=== PATIENT | male | born 1980 | race Caucasian/White ===

== ENCOUNTER 2020-02-29 23:02 | Emergency (ER) | payer MEDICAID ==
[2020-02-29 23:20] VITALS: BP 131/75; PULSE 79; O2SAT 98
[2020-02-29] MEDS ORDERED: MOTRIN 600 MG PO ONE (23:20)
[2020-02-29] MEDS ORDERED: MOTRIN 600 MG ONE (23:23)
--- NOTE | 2020-02-29 23:27 | ERPHSYRPT ---
- History of Present Illness Time Seen by Provider: 02/29/20 23:20 Source: patient Exam Limitations: no limitations Patient Subjective Stated Complaint: r earache Triage Nursing Assessment: pt to ED c/o R earache x 9 days. noted redness to ear cannal. pt states sinus drainage and cough x 9 days as well. denies SOB, fever, other flu like sx. rates 9/10 pain. states was going to wait and go to clinic in am but pain started to radiate down to R neck. has been taking cold meds and decongestants at home with no relief. ambulatory without assist, A&Ox3 , lung sounds clear, heart sounds clear. Physician History: Patient is a 39-year-old male presents to our ED for evaluation of right ear pain. Patient has been experiencing URI symptoms for approximately 9 days. Patient has been experiencing nasal congestion and rhinorrhea. Patient's right ear pain started today. Patient has not taken any oral pain medication. Pain described as an ache that is localized to the right ear. No radiation at this time. No trauma. No fevers. No nausea or vomiting. No dizziness. No change in hearing acuity. Patient does not have a primary care physician to follow-up with. Patient requesting antibiotics. Patient voices no other complaints at this time. Timing/Duration: gradual onset Severity: moderate ENT Location: ear (R) Modifying Factors: Improves With: nothing Associated Symptoms: ear pain (R), nasal congestion/drainage, No ear drainage, No headache, No swollen glands, No sore throat Allergies/Adverse Reactions: No Known Drug Allergies Allergy (Unverified 02/29/20 23:21) Hx Tetanus, Diphtheria Vaccination/Date Given: Yes Hx Influenza Vaccination/Date Given: No Immunizations Up to Date: No Travel Risk - International Travel Have you traveled outside of the country in past 3 weeks: No Have you or anyone close to you been diagnosed with or: No Do your reside in a community with a known COVID-19 case?: Yes If Yes where:: [place] - Coronavirus Screening Has patient experienced Coronavirus symptoms: Yes Symptoms experienced: respiratory symptoms (i.e.Cought,shortness of breath) Date of respiratory symptoms onset:: 02/29/20 - Review of Systems Constitutional: No Symptoms, No Fever, No Chills Eyes: No Symptoms Ears, Nose, & Throat: No Symptoms, Ear Pain, No Ear Discharge, No Hearing Changes, No Tinnitus, No Epistaxis, No Mouth Swelling Respiratory: No Symptoms, No Cough, No Dyspnea Cardiac: No Symptoms, No Chest Pain, No Edema, No Syncope Abdominal/Gastrointestinal: No Symptoms, No Abdominal Pain, No Nausea, No Vomiting, No Diarrhea Genitourinary Symptoms: No Symptoms, No Dysuria Musculoskeletal: No Symptoms, No Back Pain, No Neck Pain Skin: No Symptoms, No Rash Neurological: No Dizziness, No Focal Weakness, No Sensory Changes Psychological: No Symptoms Endocrine: No Symptoms Hematologic/Lymphatic: No Symptoms Immunological/Allergic: No Symptoms All Other Systems: Reviewed and Negative - Past Medical History Pertinent Past Medical History: Yes Neurological History: No Pertinent History ENT History: No Pertinent History Cardiac History: No Pertinent History Respiratory History: Asthma Endocrine Medical History: No Pertinent History Musculoskeletal History: No Pertinent History GI Medical History: No Pertinent History History: No Pertinent History Psycho-Social History: Depression Male Reproductive Disorders: No Pertinent History - Past Surgical History Past Surgical History: Yes Neuro Surgical History: No Pertinent History Cardiac: No Pertinent History Respiratory: No Pertinent History Gastrointestinal: No Pertinent History Genitourinary: No Pertinent History Musculoskeletal: Other Male Surgical History: No Pertinent History Other Surgical History: R elbow procedure has screws placed - Social History Smoking Status: Current every day smoker How long have you smoked: 20 Exposure to second hand smoke: Yes Drug Use: none Patient Lives Alone: No - Nursing Vital Signs Nursing Vital Signs: Initial Vital Signs Pulse Rate 79 02/29/20 23:09 Respiratory Rate 18 02/29/20 23:09 Blood Pressure 131/75 02/29/20 23:09 O2 Sat by Pulse Oximetry 98 02/29/20 23:09 Pain Scale Pain Intensity 9 - Physical Exam General Appearance: no apparent distress, alert Eye Exam: bilateral eye: PERRL, EOMI Ear Exam: right ear: TM normal (Right TM is injected and bulging.), discharge, TM red, TM bulging Nasal Exam: normal inspection, discharge, No sinus tenderness Throat Exam: pharynx normal, moist mucus membranes, No tonsillar exudate Neck Exam: supple Cardiovascular/Respiratory Exam: normal breath sounds, regular rate/rhythm Abdominal Exam: non-tender, soft Neurologic Exam: alert, oriented x 3, sensation nml, No motor deficits Skin Exam: normal color, warm, dry SpO2 Interpretation: normal SpO2: 98 O2 Delivery: Room Air - Course Nursing assessment & vital signs reviewed: Yes Ordered Tests: Active Orders 24 hr Category Date Time Status Isolation, Initiate & Maintain Q12H Care 02/29/20 23:20 Active Medication Summary Discontinued Medications Generic Name Dose Route Start Last Admin Trade Name Edward PRN Reason Stop Dose Admin Ibuprofen 600 mg 02/29/20 23:20 02/29/20 23:23 Motrin 600 Mg PO 02/29/20 23:21 600 mg STAT ONE Administration Ibuprofen Confirm 02/29/20 23:23 Motrin 600 Mg Administered 02/29/20 23:24 Dose 600 mg .ROUTE .[facility]-MED ONE - Progress Progress Note: 02/29/20 23:38 Patient given ibuprofen for pain control. Patient feels better. Augmentin prescription transmitted to his pharmacy. Counseled pt/family regarding: diagnosis, need for follow-up - Departure Departure Disposition: Home Clinical Impression: Otitis media, URI (upper respiratory infection) Condition: Stable Critical Care Time: No Referrals: SOLO MORLEY DO [ACTIVE STAFF] - Instructions: Serous Otitis Media (DC) Additional Instructions: Discharge/Care Plan JJ SAMANO was seen on 02/29/20 in the Emergency Room. The patient was counseled regarding Diagnosis,Lab results, Imaging studies, need for follow up and when to return to the Emergency Room. Prescriptions given: Discharge Note I have spoken with the patient and/or caregivers. I have explained the patient' s condition, diagnosis and treatment plan based on the information available to me at this time. I have answered the patient's and/or caregiver's questions and addressed any concerns. The patient and/or caregivers have as good understanding of the patient's diagnosis, condition and treatment plan as can be expected at this point. The vital signs have been stable. The patient's condition is stable and appropriate for discharge from the emergency department. The patient will pursue further outpatient evaluation with the primary care physician or other designated or consulting physician as outlined in the discharge instructions. The patient and/or caregivers are agreeable to this plan of care and follow-up instructions have been explained in detail. The patient and/or caregivers have received these instruction. The patient/and or caregivers are aware that any significant change in condition or worsening of symptoms should prompt an immediate return to this or the closest emergency department or call 911. Prescriptions: Amox Tr/Potass Clav. 875 mg [Augmentin 875-125 Tablet] 1 each PO BID 7 Days #14 tablet
== END 2020-02-29 23:36 | disposition home or self-care (01) ==
LOC: ED 23:02
DX: H66.91 Otitis media, unspecified, right ear (principal); J06.9 Acute upper respiratory infection, unspecified
CPT/HCPCS: 99283; A9270-GY

== ENCOUNTER 2021-11-01 17:05 | Emergency (ER) | payer BC, MEDICAID ==
[2021-11-01 17:26] VITALS: O2SAT 98
[2021-11-01 18:09] VITALS: BP 122/80; PULSE 96
[2021-11-01] MEDS ORDERED: TORAdol 30 mg Injection IV ONE (18:18)
[2021-11-01] MEDS ORDERED: TORAdol 30 mg Injection ONE (18:19)
--- NOTE | 2021-11-01 18:23 | ERPHSYRPT ---
- History of Present Illness Time Seen by Provider: 11/01/21 17:30 Source: patient Exam Limitations: no limitations Patient Subjective Stated Complaint: Pt has a bite appearing rash to his upper left thigh area Triage Nursing Assessment: Pt brought self to the ER, hypertensive, denies pain without movement but has pain with movement, bite appearing rash to upper left thigh which was first noticed today, denies any other issues Physician History: Patient is a 41-year-old male presents to our emergency department with pain at the left groin area. Patient observed the pain today while working. Pain described as an ache that is localized. No radiation. No associated trauma. No associated penile lesions. No hematuria or dysuria. No fever. Symptoms are mild to moderate in intensity. Palpation reproduces pain. Pain improves with rest. Patient denies history of the same. No history of PE DVT. Patient otherwise healthy. He voices no other complaints or concerns at this time. 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[employer] - Review of Systems Constitutional: No Symptoms, No Fever, No Chills Eyes: No Symptoms Ears, Nose, & Throat: No Symptoms Respiratory: No Symptoms, No Cough, No Dyspnea Cardiac: No Symptoms, No Chest Pain, No Edema, No Syncope Abdominal/Gastrointestinal: No Symptoms, No Abdominal Pain, No Nausea, No Vomiting, No Diarrhea Genitourinary Symptoms: No Symptoms, No Dysuria Musculoskeletal: No Symptoms, No Back Pain, No Neck Pain Skin: No Symptoms, No Rash Neurological: No Symptoms, No Dizziness, No Focal Weakness, No Sensory Changes Psychological: No Symptoms Endocrine: No Symptoms Hematologic/Lymphatic: No Symptoms Immunological/Allergic: No Symptoms All Other Systems: Reviewed and Negative - Past Medical History Pertinent Past Medical History: Yes Neurological History: No Pertinent History ENT History: No Pertinent History Cardiac History: No Pertinent History Respiratory History: Asthma Endocrine Medical History: No Pertinent History Musculoskeletal History: No Pertinent History GI Medical History: No Pertinent History History: No Pertinent History Psycho-Social History: Depression Male Reproductive Disorders: No Pertinent History - Past Surgical History Past Surgical History: Yes Neuro Surgical History: No Pertinent History Cardiac: No Pertinent History Respiratory: No Pertinent History Gastrointestinal: No Pertinent History Genitourinary: No Pertinent History Musculoskeletal: Other Male Surgical History: No Pertinent History Other Surgical History: R elbow procedure has screws placed - Social History Smoking Status: Current every day smoker How long have you smoked: 20 Exposure to second hand smoke: Yes Drug Use: none Patient Lives Alone: No - Nursing Vital Signs Nursing Vital Signs: Initial Vital Signs Temperature 98.3 F 11/01/21 17:12 Pulse Rate 99 H 11/01/21 17:12 Blood Pressure 151/92 11/01/21 17:12 O2 Sat by Pulse Oximetry 98 11/01/21 17:12 Pain Scale Pain Intensity 8 - Physical Exam General Appearance: no apparent distress, alert Eye Exam: PERRL/EOMI, eyes nml inspection Ears, Nose, Throat Exam: normal ENT inspection, TMs normal, pharynx normal, moist mucous membranes Neck Exam: normal inspection, non-tender, supple, full range of motion Respiratory Exam: normal breath sounds, lungs clear, airway intact, No chest tenderness, No respiratory distress Cardiovascular Exam: regular rate/rhythm, normal heart sounds, normal peripheral pulses Gastrointestinal/Abdomen Exam: soft, normal bowel sounds, No tenderness, No mass Male Genitalia Exam: normal genitalia, No testicular tenderness, No testicular mass Back Exam: normal inspection, normal range of motion, No CVA tenderness, No vertebral tenderness Extremity Exam: normal inspection, normal range of motion, pelvis stable Neurologic Exam: alert, oriented x 3, cooperative, normal mood/affect, nml cerebellar function, nml station & gait, sensation nml, No motor deficits Skin Exam: normal color, warm, dry, No rash Lymphatic Exam: No adenopathy SpO2 Interpretation: normal SpO2: 98 O2 Delivery: Room Air - Course Nursing assessment & vital signs reviewed: Yes - Radiology Ultrasound Exam Venous Lower Extremity Ultrasound: discussed w/radiologist (Per chief orthoptist no DVT. However there is reactive lymphadenopathy at the area of involvement. ) Ordered Tests: Active Orders 24 hr Category Date Time Status IV Insertion STAT Care 11/01/21 18:20 Active VENOUS UNILAT/LIMITED EXTREMIT [US] Stat Exams 11/01/21 17:36 Ordered Medication Summary Discontinued Medications Generic Name Dose Route Start Last Admin Trade Name Edward PRN Reason Stop Dose Admin Ketorolac Tromethamine 30 mg 11/01/21 18:18 11/01/21 18:20 Ketorolac Tromethamine 30 Mg/Ml Inj IV 11/01/21 18:19 30 mg STAT ONE Administration Ketorolac Tromethamine Confirm 11/01/21 18:19 Ketorolac Tromethamine 30 Mg/Ml Inj Administered 11/01/21 18:20 Dose 30 mg .ROUTE .STK-MED ONE - Progress Progress: improved Progress Note: Patient reassessed. Pain resolved. Evaluation shows tenderness at the left groin region. Possible DVT versus reactive lymphadenopathy. Ultrasound reveals reactive lymphadenopathy. No DVT. Extremities are neurovascular intact distally. No indication for further work-up at this time. There is no obvious source of infection that would cause this reactive lymphadenopathy. However we will treat patient empirically for soft tissue infection. Patient received a dose of Bactrim in our ED. A prescription for the same was forwarded to patient's pharmacy. Patient agrees to follow-up with his primary care doctor within 48 hours for reevaluation. Patient voices no other complaints or concerns at this time. Portions of this note were created with voice recognition technology. There may be grammatical, spelling, punctuation or sound alike errors 11/01/21 19:10 Counseled pt/family regarding: diagnosis, need for follow-up, rad results - Departure Departure Disposition: Home Clinical Impression: Inguinal lymphadenopathy Condition: Stable Critical Care Time: No Referrals: DOCTOR,NO FAMILY [Primary Care Provider] - Follow up/PCP as directed JARROD MORALEZ MD [ACTIVE STAFF] - Follow up/PCP as directed Additional Instructions: Discharge/Care Plan JJ SAMANO was seen on 11/01/21 in the Emergency Room. The patient was counseled regarding Diagnosis,Lab results, Imaging studies, need for follow up and when to return to the Emergency Room. Prescriptions given: Discharge Note I have spoken with the patient and/or caregivers. I have explained the patient's condition, diagnosis and treatment plan based on the information available to me at this time. I have answered the patient's and/or caregiver's questions and addressed any concerns. The patient and/or caregivers have as good understanding of the patient's diagnosis, condition and treatment plan as can be expected at this point. The vital signs have been stable. The patient's condition is stable and appropriate for discharge from the emergency department. The patient will pursue further outpatient evaluation with the primary care physician or other designated or consulting physician as outlined in the discharge instructions. The patient and/or caregivers are agreeable to this plan of care and follow-up instructions have been explained in detail. The patient and/or caregivers have received these instruction. The patient/and or caregivers are aware that any significant change in condition or worsening of symptoms should prompt an immediate return to this or the closest emergency department or call 911. Prescriptions: Smz/Tmp Ds Tablet [Bactrim Ds Tablet] 1 udtab PO BID 7 Days #14 tablet
[2021-11-01] MEDS ORDERED: BACTRIM DS TABLET PO STA (19:03)
[2021-11-01] MEDS ORDERED: BACTRIM DS TABLET PO ONE (19:10)
--- NOTE | 2021-11-02 08:40 | XRAY ---
Indication: Pain. Two-dimensional sonogram and color Doppler imaging of the major venous vessels of the left leg performed. Comparison: None No thrombus seen in the examined deep venous vessels of the left leg including greater saphenous vein. Veins demonstrate normal compressibility. Venous waveforms are normal with and without augmentation. Groin demonstrates a few small benign-appearing lymph nodes, largest 1.6 x 0.7 cm. Impression: Left leg negative for DVT. Comment: Preliminary report was given.
== END 2021-11-01 19:20 | disposition home or self-care (01) ==
LOC: ED 17:05
DX: R59.0 Localized enlarged lymph nodes (principal); Z72.0 Tobacco use
CPT/HCPCS: 36000; 93971; 96374; 99284; J1885; A9270-GY

== ENCOUNTER 2022-06-18 13:54 | Emergency (ER) | payer BC ==
--- NOTE | 2022-06-18 14:00 | ERPHSYRPT ---
- History of Present Illness Time Seen by Provider: 06/18/22 14:00 Source: patient Exam Limitations: no limitations Physician History: This is a 41-year-old white male who has had chronic intermittent left lower quadrant and left groin pain. In October 2021 he was seen here and had left inguinal adenopathy. He was treated with Bactrim DS. Patient stated that that medication did help him however intermittently, since that time, the pain recurs. Patient has not noticed any swelling or redness in the area. He has had no penile discharge. Severity: mild (To moderate on occasion) Modifying Factors: Improves With: movement Associated Symptoms: denies symptoms Allergies/Adverse Reactions: No Known Drug Allergies Allergy (Verified 11/01/21 17:22) Home Medications: Omeprazole 20 mg PO DAILY 06/18/22 [History] Hx Tetanus, Diphtheria Vaccination/Date Given: Yes Hx Influenza Vaccination/Date Given: No Travel Risk - International Travel Have you traveled outside of the country in past 3 weeks: No - Coronavirus Screening Are you exhibiting any of the following symptoms?: No Close contact with a COVID-19 positive Pt in past 14-21 Days: No - Vaccine Status Have you recieved a Covid-19 vaccination: Yes 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[employer] - Review of Systems Constitutional: No Symptoms Eyes: No Symptoms Ears, Nose, & Throat: No Symptoms Respiratory: No Symptoms Cardiac: No Symptoms Abdominal/Gastrointestinal: Abdominal Pain (Left lower quadrant) Genitourinary Symptoms: Other (Left inguinal pain), No Penile Discharge Skin: No Symptoms Neurological: No Symptoms Psychological: No Symptoms Endocrine: No Symptoms Hematologic/Lymphatic: No Symptoms Immunological/Allergic: No Symptoms All Other Systems: Reviewed and Negative - Past Medical History Pertinent Past Medical History: Yes Neurological History: No Pertinent History ENT History: No Pertinent History Cardiac History: No Pertinent History Respiratory History: Asthma Endocrine Medical History: No Pertinent History Musculoskeletal History: No Pertinent History GI Medical History: No Pertinent History History: No Pertinent History Psycho-Social History: Depression Male Reproductive Disorders: No Pertinent History - Past Surgical History Past Surgical History: Yes Neuro Surgical History: No Pertinent History Cardiac: No Pertinent History Respiratory: No Pertinent History Gastrointestinal: No Pertinent History Genitourinary: No Pertinent History Musculoskeletal: Other Male Surgical History: No Pertinent History Other Surgical History: R elbow procedure has screws placed - Social History Smoking Status: Current every day smoker How long have you smoked: 20 Exposure to second hand smoke: Yes Drug Use: none Patient Lives Alone: No - Nursing Vital Signs Nursing Vital Signs: Initial Vital Signs Temperature 98.1 F 06/18/22 13:59 Pulse Rate 83 06/18/22 13:59 Respiratory Rate 22 06/18/22 13:59 Blood Pressure 150/94 06/18/22 13:59 O2 Sat by Pulse Oximetry 97 06/18/22 13:59 Pain Scale Pain Intensity 0 - Physical Exam General Appearance: no apparent distress, alert, anxiety Eye Exam: PERRL/EOMI, eyes nml inspection Ears, Nose, Throat Exam: normal ENT inspection, moist mucous membranes Neck Exam: normal inspection, non-tender, supple, full range of motion Respiratory Exam: airway intact, No chest tenderness, No respiratory distress Gastrointestinal/Abdomen Exam: tenderness (Mild left lower quadrant and left inguinal) Male Genitalia Exam: No hernia Rectal Exam: not done Back Exam: normal inspection, normal range of motion, No CVA tenderness, No vertebral tenderness Extremity Exam: normal inspection, normal range of motion, pelvis stable Neurologic Exam: alert, oriented x 3, cooperative, 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 There is colonic diverticulosis without diverticulitis. The osseous structures are intact. Counseled pt/family regarding: diagnosis, need for follow-up, rad results - Departure Departure Disposition: Home Clinical Impression: Left inguinal pain Condition: Stable Critical Care Time: No Referrals: DOCTOR,NO FAMILY [Primary Care Provider] - Follow up/PCP as directed Additional Instructions: Ice pack to area 3 times a day for the next 48 hours. Take your prior medications as prescribed. Follow-up with your prescribing provider for further evaluation and management including referral to a urologist if indicated.
--- NOTE | 2022-06-18 14:37 | XRAY ---
Indication: Right upper quadrant and left groin pain. Multiple contiguous axial images obtained through the abdomen and pelvis without contrast. Comparison: None Lung bases degraded by respiration artifact. No infiltrate or effusion. Heart not enlarged. Noncontrasted stomach and bowel loops appear nonobstructed with normal appendix. Minimal scattered descending and sigmoid diverticulosis without diverticulitis. No free fluid/air. Remaining liver, gallbladder, pancreas, spleen, adrenal glands, kidneys, ureters, bladder, and aorta are unremarkable for noncontrast exam. Osseous structures intact. No ventral or inguinal hernias. Impression: Minimal colonic diverticulosis. Remaining CT abdomen/pelvis without contrast exam is negative.
[2022-06-18 15:12] VITALS: BP 126/80; PULSE 69; O2SAT 98
== END 2022-06-18 15:23 | disposition home or self-care (01) ==
LOC: ED 13:54
DX: R10.2 Pelvic and perineal pain (principal); R10.32 Left lower quadrant pain; Z72.0 Tobacco use
CPT/HCPCS: 74176; 99282

== ENCOUNTER 2023-04-24 19:43 | Emergency (ER) | payer BC ==
[2023-04-24 20:18] VITALS: O2SAT 95
[2023-04-24] MEDS ORDERED: TETRACAINE 0.5% STERI-UNIT SOL OP ONE (20:41)
[2023-04-24] MEDS ORDERED: Fluor-I-Strip/Ful-Flo OP ONE ×2 (20:41→20:54)
[2023-04-24] MEDS ORDERED: Erythromycin 1 GM OP STA (20:54)
[2023-04-24] MEDS ORDERED: Erythromycin 1 GM ONE (20:54)
[2023-04-24] MEDS ORDERED: TETRAHYDRALAZINE 0.05% Drops OP ONE (20:56)
--- NOTE | 2023-04-24 20:58 | ERPHSYRPT ---
- History of Present Illness Time Seen by Provider: 04/24/23 20:55 Source: patient Patient Subjective Stated Complaint: pt states I was working on a car and rust got in my eye Triage Nursing Assessment: pt ambulated into the er; pt is axo x4; c/o eye injury; rt conjectiva is red; eyes was flushed on arrival; swelling present to rt eye; pt states fuzziness to rt eye; skin PDW; no respiratory distress present; hypertension Physician History: Patient is a 42-year-old male presents to our ED for evaluation of rash to his right eye. He was working on a truck changing an oxygen sensor. Patient states rust fell into his eye. Patient's cleaned out most of the rest prior to arrival. Upon arrival patient's involved eye was irrigated. Patient does not wear eye contacts. He does not wear corrective lenses. He was not wearing protective eyewear at the time of the occurrence. On exam patient's right eye appears injected. Patient's eye was initially blurry. Patient states his blurred vision has since cleared up. Tetanus is up-to-date. Patient otherwise healthy. at bedside. They voiced no other complaints or concerns at this time. Portions of this note were created with voice recognition technology. There may be grammatical, spelling, punctuation or sound alike errors Timing/Duration: today Location: right eye Severity: mild Apparent Injury: possibly Associated Symptoms: pain, redness, blurred vision, No double vision Visual Assistive Devices: None Chemical Exposure: No Trauma: No Welding Arc/Tanning Bed Exposure: No Allergies/Adverse Reactions: No Known Drug Allergies Allergy (Verified 04/24/23 20:06) Home Medications: Omeprazole 20 mg PO DAILY 06/18/22 [History] Hx Tetanus, Diphtheria Vaccination/Date Given: Yes Hx Influenza Vaccination/Date Given: No Hx Pneumococcal Vaccination/Date Given: No Travel Risk - International Travel Have you traveled outside of the country in past 3 weeks: No - Coronavirus Screening Are you exhibiting any of the following symptoms?: No Close contact with a COVID-19 positive Pt in past 14-21 Days: No - Vaccine Status Have you recieved a Covid-19 vaccination: Yes 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: [employer] - Review of Systems Constitutional: No Symptoms, No Fever, No Chills Eyes: No Symptoms Ears, Nose, & Throat: No Symptoms Respiratory: No Symptoms, No Cough, No Dyspnea Cardiac: No Symptoms, No Chest Pain, No Edema, No Syncope Abdominal/Gastrointestinal: No Symptoms, No Abdominal Pain, No Nausea, No Vomiting, No Diarrhea Genitourinary Symptoms: No Symptoms, No Dysuria Musculoskeletal: No Symptoms, No Back Pain, No Neck Pain Skin: No Symptoms, No Rash Neurological: No Symptoms, No Dizziness, No Focal Weakness, No Sensory Changes Psychological: No Symptoms Endocrine: No Symptoms Hematologic/Lymphatic: No Symptoms Immunological/Allergic: No Symptoms All Other Systems: Reviewed and Negative - Past Medical History Pertinent Past Medical History: Yes Neurological History: No Pertinent History ENT History: No Pertinent History Cardiac History: No Pertinent History Respiratory History: Asthma Endocrine Medical History: No Pertinent History Musculoskeletal History: No Pertinent History GI Medical History: No Pertinent History History: No Pertinent History Psycho-Social History: Depression Male Reproductive Disorders: No Pertinent History - Past Surgical History Past Surgical History: Yes Neuro Surgical History: No Pertinent History Cardiac: No Pertinent History Respiratory: No Pertinent History Gastrointestinal: No Pertinent History Genitourinary: No Pertinent History Musculoskeletal: Other Male Surgical History: No Pertinent History Other Surgical History: R elbow procedure has screws placed - Social History Smoking Status: Current every day smoker How long have you smoked: 20 Exposure to second hand smoke: Yes Drug Use: none Patient Lives Alone: No - Nursing Vital Signs Nursing Vital Signs: Initial Vital Signs Temperature 97.4 F 04/24/23 20:12 Pulse Rate 83 04/24/23 20:12 Respiratory Rate 18 04/24/23 20:12 Blood Pressure 136/101 04/24/23 20:12 O2 Sat by Pulse Oximetry 95 04/24/23 20:12 Pain Scale Pain Intensity 2 - Physical Exam General Appearance: no apparent distress Vision Acuity Degree Evaluation Phase: Uncorrected Vision Acuity Right Eye: 20/30 Vision Acuity Left Eye: 20/30 Intraocular Pressure (Tonopen): left (26, left 24) Eye Exam: left eye: normal inspection, PERRL, EOMI Ears, Nose, Throat Exam: normal ENT inspection, TMs normal, pharynx normal Neck Exam: normal inspection, non-tender, supple, full range of motion Respiratory Exam: normal breath sounds, chest tenderness, lungs clear, respiratory distress Cardiovascular Exam: regular rate/rhythm, normal heart sounds, normal peripheral pulses Gastrointestinal Exam: soft, normal bowel sounds, No tenderness Extremity Exam: normal inspection, normal range of motion, pelvis stable Neurologic: alert, oriented x 3, cooperative, 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 as tested Skin Exam: normal color, warm, dry, No rash Lymphatic: No adenopathy SpO2 Interpretation: normal SpO2: 95 O2 Delivery: Room Air - Course Nursing assessment & vital signs reviewed: Yes Ordered Tests: Medication Summary Discontinued Medications Generic Name Dose Route Start Last Admin Trade Name Edward PRN Reason Stop Dose Admin Fluorescein Sodium Confirm 04/24/23 20:41 Fluorescein Sodium 1 Mg/Strip Strip Administered 04/24/23 20:42 Dose 1 mg OP .STK-MED ONE Tetracaine HCl Confirm 04/24/23 20:41 Tetracaine Hcl/Pf 4 Ml Bottle Administered 04/24/23 20:42 Dose 4 ml OP .STK-MED ONE - Progress Progress: improved Progress Note: Patient is a 42-year-old male presents to our ED for evaluation of foreign body to the right eye. Patient was working on the bottom of his vehicle wound rust fell into his right eye. Most of the rest was removed by his . The involved eye was irrigated upon arrival. Upon my examination patient I was injected. Patient complained of blurred vision initially but the blurred vision has since resolved. Physical exam reveals a mild conjunctivitis. No foreign bodies observed on exam. No corneal abrasions. Patient complains of a slight irritation to the right eye. Patient does not wear contacts or corrective lenses. Patient was not wearing protective eye gear at the time of the injury. Tetanus up-to-date. Severiano-Pen reveals eye pressure of 26 on the right and 24 on the left. Patient's mother has a history of glaucoma. She was diagnosed in her 40s. Patient currently 42 years old. We advised patient to obtain a formal eye exam urgently. at bedside. She agrees to do so. Erythromycin ophthalmic ointment was applied to the involved eye. A prescription for the same was forwarded to patient's pharmacy. Patient agrees to follow-up with his primary care doctor and/or his eye doctor within 48 hours for reevaluation. Voiced no other complaints or concerns at this time. Portions of this note were created with voice recognition technology. There may be grammatical, spelling, punctuation or sound alike errors Complexity of problem addressed is low acute uncomplicated No critical care time Complexity of data reviewed and analyzed is none. No specialized testing ordered. Diagnosis made based on history and physical examination. Risk of complication and or risk morbidity/mortality of patient management is moderate. A prescription for erythromycin ophthalmic was forwarded to patient's pharmacy. Patient will follow-up as discussed above. No social determinants of health present to impede follow-up. Plan of care established via shared decision making. Time discharge patient is approximately 10 to 15 minutes. and patient voiced no other complaints or concerns at this time. Portions of this note were created with voice recognition technology. There may be grammatical, spelling, punctuation or sound alike errors 04/24/23 21:00 Counseled pt/family regarding: diagnosis, need for follow-up - Departure Departure Disposition: Home Clinical Impression: Foreign body of eye, external, right, Eye irritation Condition: Stable Critical Care Time: No Referrals: SUJATHA WELCH TIE KNITTER HELPER [Primary Care Provider] - Follow up/PCP as directed Additional Instructions: Discharge/Care Plan JJ SAMANO Alicia was seen on 04/24/23 in the Emergency Room. The patient was counseled regarding Diagnosis,Lab results, Imaging studies, need for follow up and when to return to the Emergency Room. Prescriptions given: Discharge Note I have spoken with the patient and/or caregivers. I have explained the patient's condition, diagnosis and treatment plan based on the information available to me at this time. I have answered the patient's and/or caregiver's questions and addressed any concerns. The patient and/or caregivers have as good understanding of the patient's diagnosis, condition and treatment plan as can be expected at this point. The vital signs have been stable. The patient's condition is stable and appropriate for discharge from the emergency department. The patient will pursue further outpatient evaluation with the primary care physician or other designated or consulting physician as outlined in the discharge instructions. The patient and/or caregivers are agreeable to this plan of care and follow-up instructions have been explained in detail. The patient and/or caregivers have received these instruction. The patient/and or caregivers are aware that any significant change in condition or worsening of symptoms should prompt an immediate return to this or the closest emergency department or call 911. Prescriptions: Erythromycin Base 3.5 gm [Erythromycin 3.5 GM OPHTH.] 3.5 gm OP QID #1
[2023-04-24] MEDS ORDERED: TETRACAINE 0.5% STERI-UNIT SOL OP STA (20:59)
[2023-04-24 21:09] VITALS: BP 136/74; PULSE 74
== END 2023-04-24 21:09 | disposition home or self-care (01) ==
LOC: ED 19:43
DX: T15.91XA Foreign body on external eye, part unspecified, right eye, initial encounter (principal); W20.8XXA Other cause of strike by thrown, projected or falling object, initial encounter; Z72.0 Tobacco use
CPT/HCPCS: 99281; A9270-GY

== ENCOUNTER 2023-10-29 21:09 | Emergency (ER) | payer BC, MEDICAID ==
[2023-10-29 21:27] VITALS: TEMP 97.7
[2023-10-29 21:44] LABS: BASOPHIL % 0.5 % (0.0-0.4); Basophil (Absolute #) 0.05 x10^3/uL (0-0.4); Eosinophil % 3.4 % (0.00-5.0); Eosinophil (Absolute #) 0.36 x10^3/uL (0-0.5); Hematocrit 43.4 % (42-50); Hemoglobin 14.4 g/dL (12.5-18.0); IMMATURE GRAN # 0.03 x10^3u/L (0.00-0.03); IMMATURE GRAN % 0.3 % (0.00-0.4); Lymphocyte (Absolute #) 3.76 x10^3/uL (1.0-4.6); Lymphocytes % 35.7 % (24.0-44.0); Mean Cell Volume 90.4 fL (78-100); Mean Corpuscular Hgb Concent. 33.2 g/dL (32-36); Mean Platelet Volume 10.2 fL (7.5-11.0); Monocyte (Absolute #) 1.03 x10^3/uL (0.0-1.3); Monocytes % 9.8 % (0.0-12.0); Neutrophil % 50.3 % (36.0-66.0); Platelet Count 301 x10^3/uL (150-450); Red Cell Distribution Width 11.8 % (11.5-14.0); White Blood Count 10.5 x10^3/uL (4.0-10.5)
[2023-10-29 22:06] LABS: ALBUMIN 4.3 g/dL (3.5-5.0); ANION GAP 11.4 MEQ/L (5-15); BILIRUBIN,TOTAL 0.4 mg/dL (0.2-1.3); Calcium 9.1 mg/dL (8.4-10.2); Creatinine 1 1.19 mg/dL (0.66-1.25); EST GLOMERULAR FILTRATION RATE 78.7 ML/MIN; NT PRO BNPII 28.3 pg/mL (<300); Potassium 3.9 mmol/L (3.5-5.1); Total Protein 7.6 g/dL (6.3-8.2)
--- NOTE | 2023-10-29 23:19 | ERPHSYRPT ---
- History of Present Illness Time Seen by Provider: 10/29/23 21:15 Historian: patient Exam Limitations: no limitations Patient Subjective Stated Complaint: pt states he began having chest pain at approx 1900. states pain is in his lt nipple and lt upper arm. describes as a samuel pain 12/28 now Triage Nursing Assessment: pt alert and oriented, answers questions approp. pt ambulates back to room with steady gait noted. respirations nonlabored with lungs cta bilat. skin warm and dry. heart rate 92 sinus rhtyhm on monitor. Physician History: 43-year-old male presents to our emergency department for evaluation of chest pa in that started at approximately 7 PM. Chest pain mostly at the left nipple and left upper arm. No trauma no fever. Chest pain is constant. No associated nausea vomiting or diaphoresis. Symptoms are mild to moderate in intensity. No specific worsening improving factors. Patient voices no other complaints or concerns at this time. Portions of this note were created with voice recognition technology. There may be grammatical, spelling, punctuation or sound alike errors Timing/Duration: today Activities at Onset: none Quality: aching Location: other (Left nipple left arm) Chest Pain Radiation: no radiation Severity of Pain-Max: moderate Severity of Pain-Current: mild Modifying Factors: Improves With: nothing Associated Symptoms: denies symptoms Prior Chest Pain/Cardiac Workup: no prior chest pain Nitro Today/Relief: no nitro taken today Aspirin Treatment Today: no aspirin today Allergies/Adverse Reactions: No Known Drug Allergies Allergy (Verified 10/29/23 21:27) Home Medications: Famotidine 20 mg [Pepcid 20 MG] 20 mg PO BID 10/29/23 [History] Hx Tetanus, Diphtheria Vaccination/Date Given: Yes Hx Influenza Vaccination/Date Given: No Hx Pneumococcal Vaccination/Date Given: No Travel Risk - International Travel Have you traveled outside of the country in past 3 weeks: No - Coronavirus Screening Are you exhibiting any of the following symptoms?: No Close contact with a COVID-19 positive Pt in past 14-21 Days: No - Vaccine Status Have you recieved a Covid-19 vaccination: Yes 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: [employer] - Review of Systems Constitutional: No Symptoms, No Fever, No Chills Eyes: No Symptoms Ears, Nose, & Throat: No Symptoms Respiratory: No Symptoms, No Cough, No Dyspnea Cardiac: No Symptoms, No Chest Pain, No Edema, No Syncope Abdominal/Gastrointestinal: No Symptoms, No Abdominal Pain, No Nausea, No Vomiting, No Diarrhea Genitourinary Symptoms: No Symptoms, No Dysuria Musculoskeletal: No Symptoms, No Back Pain, No Neck Pain Skin: No Symptoms, No Rash Neurological: No Symptoms, No Dizziness, No Focal Weakness, No Sensory Changes Psychological: No Symptoms Endocrine: No Symptoms Hematologic/Lymphatic: No Symptoms Immunological/Allergic: No Symptoms All Other Systems: Reviewed and Negative - Past Medical History Pertinent Past Medical History: Yes Neurological History: No Pertinent History ENT History: No Pertinent History Cardiac History: No Pertinent History Respiratory History: Asthma Endocrine Medical History: No Pertinent History Musculoskeletal History: No Pertinent History GI Medical History: Ulcer History: No Pertinent History Psycho-Social History: Depression Male Reproductive Disorders: No Pertinent History Other Medical History: probable recent covid approx 1 month ago, pt states he hasnt felt well since. gastric ulcer - Past Surgical History Past Surgical History: Yes Neuro Surgical History: No Pertinent History Cardiac: No Pertinent History Respiratory: No Pertinent History Gastrointestinal: No Pertinent History Genitourinary: No Pertinent History Musculoskeletal: Other Male Surgical History: No Pertinent History Other Surgical History: R elbow procedure has screws placed - Social History Smoking Status: Current every day smoker How long have you smoked: 20 Exposure to second hand smoke: Yes Drug Use: none Patient Lives Alone: No - Nursing Vital Signs Nursing Vital Signs: Initial Vital Signs Temperature 97.7 F 10/29/23 21:11 Pulse Rate 92 H 10/29/23 21:11 Respiratory Rate 18 10/29/23 21:11 Blood Pressure 140/90 10/29/23 21:11 O2 Sat by Pulse Oximetry 99 10/29/23 21:11 Pain Scale Pain Intensity 0 - Physical Exam General Appearance: no apparent distress, alert Eye Exam: PERRL/EOMI, eyes nml inspection Ears, Nose, Throat Exam: normal ENT inspection, moist mucous membranes Neck Exam: normal inspection, non-tender, supple, full range of motion Respiratory Exam: normal breath sounds, lungs clear, No respiratory distress Cardiovascular Exam: regular rate/rhythm, normal heart sounds, normal peripheral pulses Gastrointestinal/Abdomen Exam: soft, No tenderness, No mass Back Exam: normal inspection, No CVA tenderness, No vertebral tenderness Extremity Exam: normal inspection, normal range of motion Neurologic Exam: alert, oriented x 3, cooperative, normal mood/affect, sensation nml, No motor deficits Skin Exam: normal color, warm, dry Lymphatic Exam: No adenopathy SpO2 Interpretation: normal SpO2: 98 O2 Delivery: Room Air - Course Nursing assessment & vital signs reviewed: Yes EKG Interpreted by Me: RATE (93), Sinus Rhythm, NORMAL AXIS, NORMAL INTERVALS - Radiology Exams Chest X-ray Interpretation: Interpreted by me (Normal chest) Ordered Tests: Active Orders 24 hr Category Date Time Status Patching Machine Operator STAT Care 10/29/23 21:20 Active EKG-ER Only STAT Care 10/29/23 21:19 Active IV Insertion STAT Care 10/29/23 21:19 Active Pulse Oximetry (ED) STAT Care 10/29/23 21:19 Active CHEST 1 VIEW (PORTABLE) Stat Exams 10/29/23 22:34 Taken CBC W DIFF Stat Lab 10/29/23 21:30 Completed CMP Stat Lab 10/29/23 21:30 Completed D-DIMER QUANTITATIVE Stat Lab 10/29/23 21:30 Completed NT PRO BNPII Stat Lab 10/29/23 21:30 Completed TROPONIN Q4H Lab 10/29/23 21:30 Completed TROPONIN Q4H Lab 10/30/23 01:30 Ordered TROPONIN Q4H Lab 10/30/23 05:30 Ordered UA W/RFX UR CULTURE Stat Lab 10/29/23 21:20 Ordered Medication Summary Discontinued Medications Generic Name Dose Route Start Last Admin Trade Name Freq PRN Reason Stop Dose Admin Aspirin 324 mg 10/29/23 23:24 10/29/23 23:43 Aspirin 81 Mg Tab.Chew PO 10/29/23 23:25 324 mg STAT ONE Administration Aspirin Confirm 10/29/23 23:43 Aspirin 81 Mg Tab.Chew Administered 10/29/23 23:44 Dose 324 mg .ROUTE .STK-MED ONE Lab/Rad Data: Laboratory Result Diagrams 10/29/23 21:30 10/29/23 21:30 Laboratory Results 10/29/23 10/29/23 10/29/23 Range/Units 21:30 21:30 21:30 WBC (4.0-10.5) x10^3/uL RBC (4.1-5.6) x10^6/uL Hgb (12.5-18.0) g/dL Hct (42-50) % MCV (78-100) fL MCH (26-32) pg MCHC (32-36) g/dL RDW (11.5-14.0) % Plt Count (150-450) x10^3/uL MPV (7.5-11.0) fL Gran % (36.0-66.0) % Immature Gran % (Auto) (0.00-0.4) % Nucleat RBC Rel Count (0.00-0.1) % Eos # (Auto) (0-0.5) x10^3/uL Immature Gran # (Auto) (0.00-0.03) x10^3u/L Absolute Lymphs (auto) (1.0-4.6) x10^3/uL Absolute Monos (auto) (0.0-1.3) x10^3/uL Absolute Nucleated RBC (0.00-0.01) x10^3u/L Lymphocytes % (24.0-44.0) % Monocytes % (0.0-12.0) % Eosinophils % (0.00-5.0) % Basophils % (0.0-0.4) % Absolute Granulocytes (1.4-6.9) x10^3/uL Basophils # (0-0.4) x10^3/uL D-Dimer < 0.19 (0.0-0.50) mg/L Sodium 137 (137-145) mmol/L Potassium 3.9 (3.5-5.1) mmol/L Chloride 104 (98-107) mmol/L Carbon Dioxide 25 (22-30) mmol/L Anion Gap 11.4 (5-15) MEQ/L BUN 21 H (9-20) mg/dL Creatinine 1.19 (0.66-1.25) mg/dL Estimated GFR 78.7 ML/MIN Glucose 110 H (74-106) mg/dL Calcium 9.1 (8.4-10.2) mg/dL Total Bilirubin 0.40 (0.2-1.3) mg/dL AST 35 (17-59) U/L ALT 53 H (0-50) U/L Alkaline Phosphatase 81 (38-126) U/L Troponin I < 0.012 (0.000-0.034) ng/mL NT-Pro-B Natriuret Pep 28.3 (<300) pg/mL Serum Total Protein 7.6 (6.3-8.2) g/dL Albumin 4.3 (3.5-5.0) g/dL 10/29/23 Range/Units 21:30 WBC 10.5 (4.0-10.5) x10^3/uL RBC 4.80 (4.1-5.6) x10^6/uL Hgb 14.4 (12.5-18.0) g/dL Hct 43.4 (42-50) % MCV 90.4 (78-100) fL MCH 30.0 (26-32) pg MCHC 33.2 (32-36) g/dL RDW 11.8 (11.5-14.0) % Plt Count 301 (150-450) x10^3/uL MPV 10.2 (7.5-11.0) fL Gran % 50.3 (36.0-66.0) % Immature Gran % (Auto) 0.3 (0.00-0.4) % Nucleat RBC Rel Count 0.0 (0.00-0.1) % Eos # (Auto) 0.36 (0-0.5) x10^3/uL Immature Gran # (Auto) 0.03 (0.00-0.03) x10^3u/L Absolute Lymphs (auto) 3.76 (1.0-4.6) x10^3/uL Absolute Monos (auto) 1.03 (0.0-1.3) x10^3/uL Absolute Nucleated RBC 0.00 (0.00-0.01) x10^3u/L Lymphocytes % 35.7 (24.0-44.0) % Monocytes % 9.8 (0.0-12.0) % Eosinophils % 3.4 (0.00-5.0) % Basophils % 0.5 (0.0-0.4) % Absolute Granulocytes 5.30 (1.4-6.9) x10^3/uL Basophils # 0.05 (0-0.4) x10^3/uL D-Dimer (0.0-0.50) mg/L Sodium (137-145) mmol/L Potassium (3.5-5.1) mmol/L Chloride (98-107) mmol/L Carbon Dioxide (22-30) mmol/L Anion Gap (5-15) MEQ/L BUN (9-20) mg/dL Creatinine (0.66-1.25) mg/dL Estimated GFR ML/MIN Glucose (74-106) mg/dL Calcium (8.4-10.2) mg/dL Total Bilirubin (0.2-1.3) mg/dL AST (17-59) U/L ALT (0-50) U/L Alkaline Phosphatase (38-126) U/L Troponin I (0.000-0.034) ng/mL NT-Pro-B Natriuret Pep (<300) pg/mL Serum Total Protein (6.3-8.2) g/dL Albumin (3.5-5.0) g/dL - Progress Progress: improved Air Movement: good Progress Note: 43-year-old male presents to our ED for evaluation of chest pain. EKG normal sinus rhythm. Chest x-ray nonremarkable. CBC CMP negative. D-dimer negative. Troponin negative. Patient decided he no longer wanted to wait for second troponin. Patient decided to leave AMA. Patient is of sound mind. Patient is appropriate to make informed and independent medical decisions. Patient understands that leaving AGAINST MEDICAL ADVICE can result in delayed diagnosis, increased risk of morbidity, mortality, short and long-term disability including . In spite of these risks, patient has decided to leave AGAINST MEDICAL ADVICE. Patient understands that he may return to our ED at any point if he reconsiders. Patient agrees to follow-up with his or her primary care doctor within 48 hours for reevaluation. Patient voices no other complaints or concerns at this time. We will release patient AGAINST MEDICAL ADVICE per their request. Portions of this note were created with voice recognition technology. There may be grammatical, spelling, punctuation or sound alike errors Complexity problem addressed is moderate. No critical care time Complex of data reviewed and analyzed is moderate. Test ordered test reviewed. Dr. Monroy independently reviewed the EKG and chest x-ray. Results analyzed and correlated clinically with history and physical exam. Risk of complication and or risk of morbidity/mortality of patient management is moderate patient left AGAINST MEDICAL ADVICE Vital stable. Time spent to discharge AGAINST MEDICAL ADVICE is approximately 15 minutes. No social determinants of health present to impede follow-up. Portions of this note were created with voice recognition technology. There may be grammatical, spelling, punctuation or sound alike errors 10/30/23 00:03 Blood Culture(s) Obtained: No Antibiotics given: No Counseled pt/family regarding: lab results, diagnosis, need for follow-up, rad results - Departure Departure Disposition: AMA Clinical Impression: Chest pain Condition: Stable Critical Care Time: No Referrals: SUJATHA WELCH PROCESS SUPERVISOR [Primary Care Provider] - Follow up/PCP as directed Additional Instructions: Discharge/Care Plan JJ SAMANO was seen on 10/30/23 in the Emergency Room. The patient was counseled regarding Diagnosis,Lab results, Imaging studies, need for follow up and when to return to the Emergency Room. Prescriptions given: Discharge Note I have spoken with the patient and/or caregivers. I have explained the patient's condition, diagnosis and treatment plan based on the information available to me at this time. I have answered the patient's and/or caregiver's questions and addressed any concerns. The patient and/or caregivers have as good understanding of the patient's diagnosis, condition and treatment plan as can be expected at this point. The vital signs have been stable. The patient's condition is stable and appropriate for discharge from the emergency department. The patient will pursue further outpatient evaluation with the primary care physician or other designated or consulting physician as outlined in the discharge instructions. The patient and/or caregivers are agreeable to this plan of care and follow-up instructions have been explained in detail. The patient and/or caregivers have received these instruction. The patient/and or caregivers are aware that any significant change in condition or worsening of symptoms should prompt an immediate return to this or the closest emergency department or call 911.
[2023-10-29] MEDS ORDERED: BABY ASPIRIN 81 MG CHEW PO ONE (23:24)
[2023-10-29] MEDS ORDERED: BABY ASPIRIN 81 MG CHEW ONE (23:43)
[2023-10-30 00:03] VITALS: BP 116/79; PULSE 74; RESP 18
[2023-10-30 00:06] VITALS: O2SAT 98
--- NOTE | 2023-10-30 08:51 | XRAY ---
Indication: Chest pain. Comparison: None Portable apical lordotic chest demonstrates normal heart and lungs. Bony thorax intact.
== END 2023-10-30 00:05 | disposition left against medical advice (07) ==
LOC: ED 21:09
DX: R07.9 Chest pain, unspecified (principal); Z79.899 Other long term (current) drug therapy; Z72.0 Tobacco use; Z86.16 Personal history of COVID-19
CPT/HCPCS: 36000; 36415; 71045; 80053; 83880; 84484; 85025; 85379; 93005; 93041; 94760; 99284; A9270-GY

== ENCOUNTER 2024-04-05 22:40 | Emergency (ER) | payer SELFPAY ==
[2024-04-05 23:22] VITALS: RESP 18; TEMP 98
--- NOTE | 2024-04-05 23:34 | ERPHSYRPT ---
- History of Present Illness Time Seen by Provider: 04/05/24 23:23 Historian: patient Exam Limitations: no limitations Physician History: For the past 2 months pt has had sharp intermittent RUQ abdominal pain with episodes lasting up to 4 minutes; for the past 10 years intermittent LUQ abdominal pain; denies nausea, vomiting, diarrhea, chest pain, shortness of air. Last BM was today & without blood. Allergies/Adverse Reactions: No Known Drug Allergies Allergy (Verified 04/05/24 23:33) Home Medications: Famotidine 20 mg [Pepcid 20 MG] 20 mg PO BID 10/29/23 [History] Hx Tetanus, Diphtheria Vaccination/Date Given: Yes Hx Influenza Vaccination/Date Given: No Hx Pneumococcal Vaccination/Date Given: No - Review of Systems Constitutional: No Fever Respiratory: No Dyspnea Cardiac: No Chest Pain Abdominal/Gastrointestinal: Abdominal Pain, No Nausea, No Vomiting, No Diarrhea Neurological: No Headache - Past Medical History Pertinent Past Medical History: Yes Neurological History: No Pertinent History ENT History: No Pertinent History Cardiac History: No Pertinent History Respiratory History: Asthma Endocrine Medical History: No Pertinent History Musculoskeletal History: No Pertinent History GI Medical History: Ulcer History: No Pertinent History Psycho-Social History: Depression Male Reproductive Disorders: No Pertinent History Other Medical History: probable recent covid approx 1 month ago, pt states he hasnt felt well since. gastric ulcer - Past Surgical History Past Surgical History: Yes Neuro Surgical History: No Pertinent History Cardiac: No Pertinent History Respiratory: No Pertinent History Gastrointestinal: No Pertinent History Genitourinary: No Pertinent History Musculoskeletal: Other Male Surgical History: No Pertinent History Other Surgical History: R elbow procedure has screws placed - Social History Smoking Status: Current every day smoker How long have you smoked: 20 Exposure to second hand smoke: Yes Drug Use: none Patient Lives Alone: No - Nursing Vital Signs Nursing Vital Signs: Initial Vital Signs Temperature 98.0 F 04/05/24 23:20 Pulse Rate 87 04/05/24 23:20 Respiratory Rate 18 04/05/24 23:20 Blood Pressure 158/96 04/05/24 23:20 O2 Sat by Pulse Oximetry 96 04/05/24 23:20 Pain Scale Pain Intensity 0 - Physical Exam General Appearance: alert Eye Exam: PERRL/EOMI Ears, Nose, Throat Exam: TMs normal, pharynx normal Neck Exam: normal inspection Respiratory Exam: lungs clear, airway intact Cardiovascular Exam: normal heart sounds Gastrointestinal/Abdomen Exam: normal bowel sounds, No tenderness Extremity Exam: No pedal edema Neurologic Exam: alert, cooperative Skin Exam: warm, dry SpO2 Interpretation: normal SpO2: 96 O2 Delivery: Room Air - CT Exams Abdomen/Pelvis CT Interpretation: Tele-radiologist Report (No acute or significant abnormality. See rest of report.) Ordered Tests: Active Orders 24 hr Category Date Time Status IV Insertion STAT Care 04/05/24 23:35 Active ABDOMEN AND PELVIS W/0 CONTRAS [CT] Stat Exams 04/05/24 23:36 Completed AMYLASE Stat Lab 04/05/24 23:55 Completed CBC W DIFF Stat Lab 04/05/24 23:55 Completed CMP Stat Lab 04/05/24 23:55 Completed LIPASE Stat Lab 04/05/24 23:55 Completed UA W/RFX UR CULTURE Stat Lab 04/05/24 23:37 Completed Medication Summary Generic Name Dose Route Start Last Admin Trade Name Freq PRN Reason Stop Dose Admin Sodium Chloride 1,000 mls @ 100 mls/hr 04/05/24 23:45 04/05/24 23:56 Sodium Chloride 0.9% 1000 Ml IV 05/05/24 23:44 100 mls/hr .Q10H LINK Administration Discontinued Medications Generic Name Dose Route Start Last Admin Trade Name Freq PRN Reason Stop Dose Admin Morphine Sulfate 4 mg 04/05/24 23:35 04/05/24 23:56 Morphine Sulfate 4 Mg/Ml Injection IV 04/05/24 23:36 4 mg STAT ONE Administration Morphine Sulfate Confirm 04/05/24 23:53 Morphine Sulfate 4 Mg/Ml Injection Administered 04/05/24 23:54 Dose 4 mg .ROUTE .STK-MED ONE Ondansetron HCl 4 mg 04/05/24 23:35 04/05/24 23:56 Ondansetron Hcl 4 Mg/2 Ml Vial IV 04/05/24 23:36 4 mg STAT ONE Administration Ondansetron HCl Confirm 04/05/24 23:53 Ondansetron Hcl 4 Mg/2 Ml Vial Administered 04/05/24 23:54 Dose 4 mg .ROUTE .STK-MED ONE Lab/Rad Data: Laboratory Result Diagrams 04/05/24 23:55 04/05/24 23:55 Laboratory Results 0504/05/24 04/05/24 Range/Units 23:55 23:55 23:37 WBC 10.2 (4.0-10.5) x10^3/uL RBC 4.77 (4.1-5.6) x10^6/uL Hgb 14.5 (12.5-18.0) g/dL Hct 42.3 (42-50) % MCV 88.7 (78-100) fL MCH 30.4 (26-32) pg MCHC 34.3 (32-36) g/dL RDW 12.1 (11.5-14.0) % Plt Count 283 (150-450) x10^3/uL MPV 10.3 (7.5-11.0) fL Gran % 54.9 (36.0-66.0) % Immature Gran % (Auto) 0.3 (0.00-0.4) % Nucleat RBC Rel Count 0.0 (0.00-0.1) % Eos # (Auto) 0.33 (0-0.5) x10^3/uL Immature Gran # (Auto) 0.03 (0.00-0.03) x10^3u/L Absolute Lymphs (auto) 3.29 (1.0-4.6) x10^3/uL Absolute Monos (auto) 0.89 (0.0-1.3) x10^3/uL Absolute Nucleated RBC 0.00 (0.00-0.01) x10^3u/L Lymphocytes % 32.4 (24.0-44.0) % Monocytes % 8.8 (0.0-12.0) % Eosinophils % 3.2 (0.00-5.0) % Basophils % 0.4 (0.0-0.4) % Absolute Granulocytes 5.59 (1.4-6.9) x10^3/uL Basophils # 0.04 (0-0.4) x10^3/uL Sodium 140 (135-145) mmol/L Potassium 3.9 (3.5-5.1) mmol/L Chloride 108 H (98-107) mmol/L Carbon Dioxide 22 (22-30) mmol/L Anion Gap 14.1 (5-15) MEQ/L BUN 21 H (9-20) mg/dL Creatinine 1.13 (0.66-1.25) mg/dL Estimated GFR 83.7 ML/MIN Glucose 109 H (74-106) mg/dL Calcium 9.6 (8.4-10.2) mg/dL Total Bilirubin 0.50 (0.2-1.3) mg/dL AST 34 (17-59) U/L ALT 56 H (0-50) U/L Alkaline Phosphatase 77 (38-126) U/L Serum Total Protein 7.9 (6.3-8.2) g/dL Albumin 4.5 (3.5-5.0) g/dL Amylase 64 (30-110) U/L Lipase 130 (23-300) U/L Urine Color Dark Yellow (Yellow) Urine Appearance Clear (Clear) Urine pH 5.5 (4.6-8.0) Ur Specific Alloy 1.025 (1.005-1.030) Urine Protein Negative (Negative) Urine Glucose (UA) Negative (Negative) mg/dL Urine Ketones Negative (Negative) Urine Blood Negative (Negative) Urine Nitrite Negative (Negative) Urine Bilirubin Negative (Negative) Urine Urobilinogen 1.0 A (0.2) mg/dL Ur Leukocyte Esterase Negative (Negative) U Hyaline Cast (Auto) NONE SEEN (0-2) /LPF Urine Microscopic RBC 3-5 (0-5) /HPF Urine Microscopic WBC 0-2 (0-5) /HPF Ur Epithelial Cells None Seen (None Seen) /HPF Urine Bacteria None Seen (None Seen) /HPF Urine Culture Reflexed NO (NO) - Progress Progress: unchanged Counseled pt/family regarding: lab results, diagnosis, need for follow-up, rad results Medical Desision Making - Diagnostic Testing Diagnostic test were ordered, analyzed, and reviewed by me: Yes Radiological Interpretation: Teleradiologist Report - Departure Departure Disposition: Home Clinical Impression: Abdominal pain Condition: Stable Critical Care Time: No Referrals: SUJATHA WELCH FNP [Primary Care Provider] - Follow up/PCP as directed Instructions: Severe Abdominal Pain, Adult (DC) Additional Instructions: Follow up with private doctor tomorrow. Return to [facility] for an outpatient gallbladder ultrasound on 04/08/24 at 8:30 AM. Forms: Work/School Release Form
[2024-04-05] MEDS ORDERED: Zofran 4 MG/2 ML VIAL ONE (23:53)
[2024-04-05] MEDS ORDERED: Sodium Chloride 0.9% 1000 ML 1,000 ML ONE (23:53)
[2024-04-05] MEDS ORDERED: MORPHINE SULFATE 4 MG INJ ONE (23:53)
[2024-04-05] MEDS: MORPHINE SULFATE 4 MG INJ IV ONE (23:56)
[2024-04-05] MEDS: Zofran 4 MG/2 ML VIAL IV ONE (23:56)
[2024-04-05] MEDS: Sodium Chloride 0.9% 1000 ML 1,000 ML IV SCH (23:56)
[2024-04-05 23:58] LABS: Appearance Clear (Clear); Bacteria None Seen /HPF (None Seen); Bilirubin Negative (Negative); Blood Negative (Negative); Epithelial Cells None Seen /HPF (None Seen); Glucose, Urine Negative (Negative); Hyaline Casts NONE SEEN /LPF (0-2); Ketones Negative (Negative); Leukocyte Esterase Negative (Negative); Nitrite Negative (Negative); Ph 5.5 (4.6-8.0); Protein,Urine Dip Negative (Negative); Specific Gravity 1.025 (1.005-1.030); WBC 0-2 /HPF (0-5)
[2024-04-06] LABS: ADD URINE CULTURE? NO (NO)
[2024-04-06 00:05] LABS: Absolute Neutrophil Ct (ANC) 5.59 x10^3/uL (1.4-6.9); BASOPHIL % 0.4 % (0.0-0.4); Basophil (Absolute #) 0.04 x10^3/uL (0-0.4); Eosinophil % 3.2 % (0.00-5.0); Eosinophil (Absolute #) 0.33 x10^3/uL (0-0.5); Hematocrit 42.3 % (42-50); Hemoglobin 14.5 g/dL (12.5-18.0); IMMATURE GRAN # 0.03 x10^3u/L (0.00-0.03); IMMATURE GRAN % 0.3 % (0.00-0.4); Lymphocyte (Absolute #) 3.29 x10^3/uL (1.0-4.6); Lymphocytes % 32.4 % (24.0-44.0); Mean Cell Volume 88.7 fL (78-100); Mean Corpuscular Hemoglobin 30.4 pg (26-32); Mean Corpuscular Hgb Concent. 34.3 g/dL (32-36); Mean Platelet Volume 10.3 fL (7.5-11.0); Monocyte (Absolute #) 0.89 x10^3/uL (0.0-1.3); Monocytes % 8.8 % (0.0-12.0); Neutrophil % 54.9 % (36.0-66.0); Platelet Count 283 x10^3/uL (150-450); Red Blood Count 4.77 x10^6/uL (4.1-5.6); Red Cell Distribution Width 12.1 % (11.5-14.0); White Blood Count 10.2 x10^3/uL (4.0-10.5)
[2024-04-06 00:07] VITALS: PULSE 76
[2024-04-06 00:19] LABS: ALBUMIN 4.5 g/dL (3.5-5.0); ANION GAP 14.1 MEQ/L (5-15); BILIRUBIN,TOTAL 0.5 mg/dL (0.2-1.3); Calcium 9.6 mg/dL (8.4-10.2); Creatinine 1 1.13 mg/dL (0.66-1.25); EST GLOMERULAR FILTRATION RATE 83.7 ML/MIN; Potassium 3.9 mmol/L (3.5-5.1); Total Protein 7.9 g/dL (6.3-8.2)
--- NOTE | 2024-04-06 01:12 | XRAY ---
CLINICAL HISTORY: pain COMPARISON: None TECHNIQUE: Axial CT images of the abdomen and pelvis were acquired without intravenous contrast. Coronal and sagittal reformats provided. (One of the following dose reduction techniques were utilized for this exam: Automated exposure control, adjustment of the mA and/or kV according to patient size, and use of iterative reconstruction) FINDINGS: Within the limitations of this unenhanced study, the liver appears unremarkable except for mildly enlarged left hepatic lobe [[place] tail appearance ? normal variant]. No intrahepatic or extrahepatic bile duct dilation. Unremarkable appearing gallbladder with no stones wall thickening or pericholecystic inflammatory changes or fluid. The spleen, pancreas, adrenal glands are unremarkable. The kidneys appear unremarkable with no cysts masses or hydronephrosis. No renal calculus is seen. The ureters are normal with no stones. Bladder is unremarkable with no stones. Pelvic viscera appear unremarkable. The stomach appears unremarkable. Unremarkable appearing duodenum. Unprepared small bowel and colon are non-distended with no gross abnormality. Appendix appears unremarkable. No ascites. No free intraperitoneal air is seen. Uncomplicated umbilical hernia contains omental fat. Visualized lung bases are clear. Loss of lumbar lordotic curvature. Mild degenerative changes seen in the visualized spine. IMPRESSION: CT abdomen and pelvis reveals no acute or significant abnormality. Uncomplicated umbilical hernia contains omental fat. Loss of lumbar lordotic curvature. Electronically Signed by: Sonia Melara MD. (04/06/2024 01:07:39 EDT)
[2024-04-06 01:37] VITALS: BP 122/92; O2SAT 97
== END 2024-04-06 01:38 | disposition home or self-care (01) ==
LOC: ED 22:40
DX: R10.11 Right upper quadrant pain (principal); Z72.0 Tobacco use
CPT/HCPCS: 36000; 36415; 74176; 80053; 81001; 82150; 83690; 85025; 96374; 96375; 99285; J2270; J2405